=== PATIENT | male | born 1970 | race Caucasian/White ===

== ENCOUNTER 2020-06-20 04:12 | Inpatient (IN) | payer MEDICARE, MEDICAID ==
[2020-06-20 04:37] LABS: #Monocytes 0.9 10x3/uL (0.0-1.1); #Neutrophils 9.2 10x3/uL (1.5-8.4); %Basophils 0.3 % (0.0-2.0); %Eosinophils 0.3 % (0.0-6.0); %Lymphocytes 12.2 % (18.0-47.0); %Monocytes 7.5 % (0.0-10.0); %Neutrophils 79.4 % (40.0-75.0); Hemoglobin 14.3 g/dL (13.5-17.5); Mean Corpuscular HGB CONC 30.9 g/dL (32.0-36.0); Mean Corpuscular Hemoglobin 30.4 pg (27.0-33.0); Mean Corpuscular Volume 98.5 fl (81.2-95.1); Mean Platelet Volume 9.7 fl (7.4-10.4); Platelet Count 319 10x3/uL (150-450); RBC Distribution Width 12.3 % (11.5-14.5); White Blood Cell (WBC) Count 11.6 10x3/uL (3.5-10.5)
[2020-06-20 04:38] LABS: Actual Bicarbonate (HCO3v) 29 mEq/L (22-28); Base Excess -1.4 mEq/L (-2.0 to +3.0); Calcium, Ionized (venous) 1.12 mmol/L (1.16-1.32); Chloride (VBG) 99 mmol/L (98-106); Hemoglobin (Hb) 15.2 g/dL (13.1-17.2); Potassium (VBG) 4.54 mmol/L (3.70-5.30); Puncture Site Other Site; pH (venous) 7.19 (7.32-7.43)
[2020-06-20] MEDS ORDERED: Albuterol Sulfate 2.5 mg/0.5 ml Neb ONE (04:41)
[2020-06-20 04:50] LABS: ALT (SGPT) 49 U/L (8-55); AST (SGOT) 32 U/L (5-34); Albumin 4.2 g/dL (3.5-5.0); Alkaline Phosphatase 111 U/L (40-110); Anion Gap 10 mmol/L (10-20); BUN (Urea Nitrogen) 8 mg/dL (8.9-20.6); Bilirubin, Total 0.4 mg/dL (0.2-1.2); CK (CPK) 233 U/L (30-200); Calc. Creatinine Clearance 0 mL/min (70-130); Calcium 8.2 mg/dL (7.8-10.44); Carbon Dioxide 36 mmol/L (22-29); Chloride 97 mmol/L (98-107); Globulin 2.8 g/dL (2.4-3.5); Glucose 132 mg/dL (70-105); Potassium 4.8 mmol/L (3.5-5.1); Sodium 138 mmol/L (136-145)
[2020-06-20] MEDS ORDERED: Cefepime 2 GM VIAL ONE (05:04)
[2020-06-20 05:18] LABS: SARS-CoV-2 NAA Rapid Test Not Detected (NotDetected)
[2020-06-20] MEDS ORDERED: Milk Of Magnesia 30 ML UDCUP PO PRN (06:03)
[2020-06-20] MEDS ORDERED: Ondansetron PF 4 MG/2 ML Vial IVP PRN (06:03)
[2020-06-20] MEDS ORDERED: Ondansetron ODT 4 MG TAB PO PRN (06:03)
[2020-06-20] MEDS ORDERED: Senokot S 8.6-50 MG TAB PO PRN (06:03)
[2020-06-20 06:26] VITALS: BMI 24.5
[2020-06-20] MEDS: Sodium Chloride 0.9% 1,000 ML IV SCH ×2 (06:44→20:15)
[2020-06-20] MEDS: methylPREDNISolone Sod Succ 40 MG VIAL IVP SCH ×4 (06:45→23:46)
[2020-06-20] MEDS: Arformoterol 15 MCG/2 ML NEB NEB SCH ×2 (07:24→18:57)
[2020-06-20] MEDS: Budesonide 0.5 MG/2 ML NEB NEB SCH ×2 (07:30→18:58)
[2020-06-20] MEDS: Pantoprazole 40 MG VIAL IVP SCH (08:00)
[2020-06-20] MEDS: guaiFENesin ER 600 MG TAB PO SCH ×2 (08:00→20:13)
[2020-06-20] MEDS: Nicotine 21 MG PATCH TD SCH (08:00)
[2020-06-20] MEDS: Enoxaparin Sodium 40 MG/0.4 ML SYRINGE SC SCH (08:36)
[2020-06-20 09:52] LABS: Actual Bicarbonate (HCO3a) 35.2 mEq/L (22-28); Base Excess (BEa) 3.5 mEq/L (-2.0 to +3.0); CO2 Tension 94.2 mmHg (35.0-45.0); Calcium, Ionized (arterial) 1.16 mmol/L (1.12-1.30); Hemoglobin (Hb) 14.6 g/dL (14.0-18.0); Potassium - ABG Lab 4.8 mmol/L (3.70-5.30); Puncture Site LRA; pH, Arterial 7.19 (7.35-7.45)
[2020-06-20] MEDS ORDERED: Prevnar 13-Val Conj/PF 0.5 ML SYRINGE IM ONE (10:00)
[2020-06-20 13:05] LABS: Actual Bicarbonate (HCO3a) 32.6 mEq/L (22-28); Base Excess (BEa) 2.7 mEq/L (-2.0 to +3.0); Calcium, Ionized (arterial) 1.16 mmol/L (1.12-1.30); Carboxyhemoglobin (COHb) 0.8 gm% (0.0-3.0); Hemoglobin (Hb) 14.1 g/dL (14.0-18.0); Potassium - ABG Lab 4.6 mmol/L (3.70-5.30); Puncture Site LRA; pH, Arterial 7.24 (7.35-7.45)
[2020-06-20] MEDS: cefTRIAXone\\ROCEPHIN 2 GM in Sodium Chloride 0.9% 100 ML IVPB SCH (13:40)
[2020-06-20] MEDS: Azithromycin 500 MG in Sodium Chloride 0.9% 250 ML 250 ML IVPB SCH (20:13)
[2020-06-21 03:41] LABS: #Monocytes 0.5 10x3/uL (0.0-1.1); #Neutrophils 7.1 10x3/uL (1.5-8.4); %Basophils 0.1 % (0.0-2.0); %Lymphocytes 7.4 % (18.0-47.0); %Monocytes 5.8 % (0.0-10.0); %Neutrophils 86.5 % (40.0-75.0); Hemoglobin 12.7 g/dL (13.5-17.5); Mean Corpuscular HGB CONC 31.6 g/dL (32.0-36.0); Mean Corpuscular Hemoglobin 30.8 pg (27.0-33.0); Mean Corpuscular Volume 97.3 fl (81.2-95.1); Mean Platelet Volume 9.5 fl (7.4-10.4); Platelet Count 248 10x3/uL (150-450); RBC Distribution Width 12.4 % (11.5-14.5); Red Blood Cell (RBC) Count 4.13 10x6/uL (4.32-5.72); White Blood Cell (WBC) Count 8.3 10x3/uL (3.5-10.5)
[2020-06-21 03:46] LABS: Base Excess (BEa) 6.3 mEq/L (-2.0 to +3.0); CO2 Tension 90.2 mmHg (35.0-45.0); Calcium, Ionized (arterial) 1.17 mmol/L (1.12-1.30); Carboxyhemoglobin (COHb) 0.6 gm% (0.0-3.0); Hemoglobin (Hb) 13.3 g/dL (14.0-18.0); O2 Tension (PaO2), arterial 47.3 mmHg (80.0-100.0); Potassium - ABG Lab 4.5 mmol/L (3.70-5.30); Puncture Site RRA; pH, Arterial 7.23 (7.35-7.45)
[2020-06-21 03:54] LABS: Anion Gap 13 mmol/L (10-20); BUN (Urea Nitrogen) 9 mg/dL (8.9-20.6); Calc. Creatinine Clearance 133 mL/min (70-130); Calcium 8.6 mg/dL (7.8-10.44); Carbon Dioxide 35 mmol/L (22-29); Chloride 97 mmol/L (98-107); Glucose 134 mg/dL (70-105); Potassium 4.7 mmol/L (3.5-5.1); Sodium 140 mmol/L (136-145)
[2020-06-21] MEDS: methylPREDNISolone Sod Succ 40 MG VIAL IVP SCH ×4 (06:09→23:41)
[2020-06-21] MEDS: Arformoterol 15 MCG/2 ML NEB NEB SCH ×2 (07:11→18:46)
[2020-06-21] MEDS: Budesonide 0.5 MG/2 ML NEB NEB SCH ×2 (07:15→18:46)
[2020-06-21] MEDS: Sodium Chloride 0.9% 1,000 ML IV SCH ×2 (08:35→20:55)
[2020-06-21] MEDS: guaiFENesin ER 600 MG TAB PO SCH ×2 (08:36→20:31)
[2020-06-21] MEDS: Enoxaparin Sodium 40 MG/0.4 ML SYRINGE SC SCH (08:36)
[2020-06-21] MEDS: Nicotine 21 MG PATCH TD SCH (08:37)
[2020-06-21] MEDS: Pantoprazole 40 MG VIAL IVP SCH (08:38)
[2020-06-21 09:29] LABS: Actual Bicarbonate (HCO3a) 37.7 mEq/L (22-28); Base Excess (BEa) 8.9 mEq/L (-2.0 to +3.0); CO2 Tension 73.9 mmHg (35.0-45.0); Calcium, Ionized (arterial) 1.14 mmol/L (1.12-1.30); Carboxyhemoglobin (COHb) 0.3 gm% (0.0-3.0); Hemoglobin (Hb) 13.2 g/dL (14.0-18.0); O2 Tension (PaO2), arterial 92.7 mmHg (80.0-100.0); Potassium - ABG Lab 4.3 mmol/L (3.70-5.30); Puncture Site RRA; pH, Arterial 7.33 (7.35-7.45)
[2020-06-21 09:31] LABS: ALV-art Gradient 14.565 mmHg (0-20)
[2020-06-21] MEDS: cefTRIAXone\\ROCEPHIN 2 GM in Sodium Chloride 0.9% 100 ML IVPB SCH (12:24)
[2020-06-21] MEDS: Azithromycin 500 MG in Sodium Chloride 0.9% 250 ML 250 ML IVPB SCH (20:31)
[2020-06-22] MEDS: methylPREDNISolone Sod Succ 40 MG VIAL IVP SCH ×4 (05:30→21:53)
[2020-06-22] MEDS: Arformoterol 15 MCG/2 ML NEB NEB SCH ×2 (07:21→19:53)
[2020-06-22] MEDS: Budesonide 0.5 MG/2 ML NEB NEB SCH ×2 (07:24→19:53)
[2020-06-22] MEDS: Pantoprazole 40 MG VIAL IVP SCH (08:46)
[2020-06-22] MEDS: Enoxaparin Sodium 40 MG/0.4 ML SYRINGE SC SCH (08:46)
[2020-06-22] MEDS: guaiFENesin ER 600 MG TAB PO SCH ×2 (08:46→21:52)
[2020-06-22] MEDS: Nicotine 21 MG PATCH TD SCH (08:47)
[2020-06-22] MEDS: Sodium Chloride 0.9% 1,000 ML IV SCH (12:28)
[2020-06-22] MEDS: cefTRIAXone\\ROCEPHIN 2 GM in Sodium Chloride 0.9% 100 ML IVPB SCH (12:44)
[2020-06-22] MEDS: Azithromycin 500 MG in Sodium Chloride 0.9% 250 ML 250 ML IVPB SCH (21:52)
[2020-06-23] MEDS: Arformoterol 15 MCG/2 ML NEB NEB SCH ×2 (07:00→19:14)
[2020-06-23] MEDS: Budesonide 0.5 MG/2 ML NEB NEB SCH ×2 (07:00→19:14)
[2020-06-23] MEDS: methylPREDNISolone Sod Succ 40 MG VIAL IVP SCH ×4 (07:02→23:25)
[2020-06-23] MEDS: Nicotine 21 MG PATCH TD SCH (09:30)
[2020-06-23] MEDS: guaiFENesin ER 600 MG TAB PO SCH ×2 (09:30→23:23)
[2020-06-23] MEDS: Enoxaparin Sodium 40 MG/0.4 ML SYRINGE SC SCH (09:30)
[2020-06-23] MEDS: Pantoprazole 40 MG VIAL IVP SCH (09:30)
[2020-06-23] MEDS: Sodium Chloride 0.9% 1,000 ML IV SCH (09:34)
[2020-06-23] MEDS: cefTRIAXone\\ROCEPHIN 2 GM in Sodium Chloride 0.9% 100 ML IVPB SCH (12:59)
[2020-06-23] MEDS: Azithromycin 500 MG in Sodium Chloride 0.9% 250 ML 250 ML IVPB SCH (23:23)
[2020-06-24] MEDS: methylPREDNISolone Sod Succ 40 MG VIAL IVP SCH (06:41)
[2020-06-24] MEDS: Arformoterol 15 MCG/2 ML NEB NEB SCH (07:30)
[2020-06-24] MEDS: Budesonide 0.5 MG/2 ML NEB NEB SCH (07:30)
[2020-06-24 07:56] VITALS: BP 141/88; TEMP 97.1
[2020-06-24] MEDS: Pantoprazole 40 MG VIAL IVP SCH (09:21)
[2020-06-24] MEDS: Nicotine 21 MG PATCH TD SCH (09:21)
[2020-06-24] MEDS: guaiFENesin ER 600 MG TAB PO SCH (09:21)
[2020-06-24] MEDS: Enoxaparin Sodium 40 MG/0.4 ML SYRINGE SC SCH (09:21)
== END 2020-06-24 12:16 | disposition home or self-care (01) | DRG 189 ==
LOC: CSHERS 04:12 → CSHIMCU 06:16 → CSHTELE 06-22 19:09
PROVIDERS: ADMIT Family Medicine; ATTEND Family Medicine
PROC: 5A09457 Assistance with Respiratory Ventilation, 24-96 Consecutive Hours, Continuous Positive Airway Pressure (ICD-10-PCS; principal; 2020-06-20)
DX: J96.21 Acute and chronic respiratory failure with hypoxia (principal); J44.1 Chronic obstructive pulmonary disease with (acute) exacerbation; E87.2 Acidosis; Z20.822 Contact with and (suspected) exposure to COVID-19; J96.22 Acute and chronic respiratory failure with hypercapnia; F17.210 Nicotine dependence, cigarettes, uncomplicated; Z88.0 Allergy status to penicillin; Z90.49 Acquired absence of other specified parts of digestive tract; Z80.8 Family history of malignant neoplasm of other organs or systems; Z98.890 Other specified postprocedural states; Z99.81 Dependence on supplemental oxygen; Z71.6 Tobacco abuse counseling
CPT/HCPCS: 36600; 71045; 80048; 80053; 82550; 82805; 83605; 83735; 84484; 85025; 87040; 93005; 94640; 94660; 94760; 96374; 96375; C9113; J0456; J0692; J0696; J1650; J1956; J2920; J3490; J7050; J7611; J7620; J7626; U0002

== ENCOUNTER 2020-11-11 07:38 | Inpatient (IN) | payer MEDICARE, MEDICAID ==
[2020-11-11] MEDS ORDERED: Albuterol Sulfate 2.5 mg/3 ml Neb ONE (07:53)
[2020-11-11 08:08] LABS: #Monocytes 0.9 10x3/uL (0.0-1.1); #Neutrophils 10.5 10x3/uL (1.5-8.4); %Basophils 0.2 % (0.0-2.0); %Eosinophils 0.2 % (0.0-6.0); %Lymphocytes 13.8 % (18.0-47.0); %Monocytes 6.5 % (0.0-10.0); %Neutrophils 78.7 % (40.0-75.0); Hemoglobin 15.6 g/dL (13.5-17.5); Mean Corpuscular HGB CONC 31.4 g/dL (32.0-36.0); Mean Corpuscular Hemoglobin 30.1 pg (27.0-33.0); Mean Corpuscular Volume 95.9 fl (81.2-95.1); Platelet Count 364 10x3/uL (150-450); RBC Distribution Width 12.1 % (11.5-14.5); Red Blood Cell (RBC) Count 5.18 10x6/uL (4.32-5.72); White Blood Cell (WBC) Count 13.4 10x3/uL (3.5-10.5)
[2020-11-11 08:19] LABS: ALT (SGPT) 21 U/L (8-55); AST (SGOT) 24 U/L (5-34); Albumin 4.3 g/dL (3.5-5.0); Alkaline Phosphatase 111 U/L (40-110); Anion Gap 13 mmol/L (10-20); BUN (Urea Nitrogen) 10 mg/dL (8.4-25.7); Bilirubin, Total 0.6 mg/dL (0.2-1.2); Calc. Creatinine Clearance 0 mL/min (70-130); Calcium 9.9 mg/dL (7.8-10.44); Carbon Dioxide 32 mmol/L (22-29); Chloride 97 mmol/L (98-107); Globulin 4.4 g/dL (2.4-3.5); Glucose 128 mg/dL (70-105); Protein, Total 8.7 g/dL (6.0-8.3); Sodium 137 mmol/L (136-145)
[2020-11-11 08:33] LABS: Actual Bicarbonate (HCO3a) 29.2 mEq/L (22-28); Base Excess (BEa) 0.2 mEq/L (-2.0 to +3.0); CO2 Tension 65.4 mmHg (35.0-45.0); Carboxyhemoglobin (COHb) 2.1 gm% (0.0-3.0); Hemoglobin (Hb) 16.6 g/dL (14.0-18.0); O2 Tension (PaO2), arterial 219.2 mmHg (80.0-100.0); Potassium - ABG Lab 5.2 mmol/L (3.70-5.30); Puncture Site LBA; pH, Arterial 7.27 (7.35-7.45)
[2020-11-11 08:55] LABS: SARS-CoV-2 NAA Rapid Test Not Detected (NotDetected)
[2020-11-11] MEDS ORDERED: Albuterol Sulfate 2.5 mg/3 ml Neb NEB PRN (09:36)
[2020-11-11] MEDS ORDERED: Bisacodyl 5 MG TAB PO PRN (09:38)
[2020-11-11] MEDS ORDERED: HYDROcodone/Acetaminophen 5/325 mg Tablet PO PRN (09:38)
[2020-11-11] MEDS ORDERED: Ondansetron ODT 4 MG TAB PO PRN (09:38)
[2020-11-11] MEDS ORDERED: Ondansetron PF 4 MG/2 ML Vial IVP PRN (09:38)
[2020-11-11] MEDS ORDERED: Acetaminophen 325 MG TAB PO PRN (09:38)
[2020-11-11 10:53] VITALS: BMI 24.3
[2020-11-11 10:58] LABS: Troponin I Less than 0.010 ng/mL (< 0.028)
[2020-11-11] MEDS: methylPREDNISolone Sod Succ 40 MG VIAL IVP SCH ×3 (11:31→23:04)
[2020-11-11] MEDS: Nicotine 14 MG PATCH TD SCH (11:31)
[2020-11-11] MEDS ORDERED: Prevnar 13-Val Conj/PF 0.5 ML SYRINGE IM ONE (11:45)
[2020-11-11 14:02] LABS: Troponin I Less than 0.010 ng/mL (< 0.028)
[2020-11-11] MEDS: Famotidine 20 MG TAB PO SCH (22:04)
[2020-11-12 03:30] LABS: #Monocytes 0.5 10x3/uL (0.0-1.1); #Neutrophils 11.7 10x3/uL (1.5-8.4); %Basophils 0.1 % (0.0-2.0); %Lymphocytes 5.3 % (18.0-47.0); %Monocytes 4.1 % (0.0-10.0); %Neutrophils 90.2 % (40.0-75.0); Hemoglobin 13.5 g/dL (13.5-17.5); Mean Corpuscular HGB CONC 31.8 g/dL (32.0-36.0); Mean Corpuscular Hemoglobin 29.9 pg (27.0-33.0); Mean Platelet Volume 8.9 fl (7.4-10.4); Platelet Count 304 10x3/uL (150-450); RBC Distribution Width 12.1 % (11.5-14.5); Red Blood Cell (RBC) Count 4.51 10x6/uL (4.32-5.72)
[2020-11-12 03:43] LABS: Anion Gap 13 mmol/L (10-20); BUN (Urea Nitrogen) 17 mg/dL (8.4-25.7); Calc. Creatinine Clearance 119 mL/min (70-130); Calcium 9.7 mg/dL (7.8-10.44); Carbon Dioxide 31 mmol/L (22-29); Chloride 92 mmol/L (98-107); Glucose 155 mg/dL (70-105); Potassium 4.4 mmol/L (3.5-5.1); Sodium 132 mmol/L (136-145)
[2020-11-12] MEDS: methylPREDNISolone Sod Succ 40 MG VIAL IVP SCH ×3 (05:32→21:13)
[2020-11-12] MEDS: Famotidine 20 MG TAB PO SCH ×2 (07:54→21:12)
[2020-11-12] MEDS: Enoxaparin Sodium 40 MG/0.4 ML SYRINGE SC SCH (07:54)
[2020-11-12] MEDS: Nicotine 14 MG PATCH TD SCH (07:54)
[2020-11-12] MEDS ORDERED: Doxycycline 100 MG CAP PO SCH (10:00)
[2020-11-12] MEDS: Arformoterol 15 MCG/2 ML NEB NEB SCH (19:15)
[2020-11-12] MEDS: Atorvastatin Calcium 10 MG TAB PO SCH (21:13)
[2020-11-12] MEDS: Doxycycline 100 MG CAP PO SCH (21:34)
[2020-11-13] MEDS: Arformoterol 15 MCG/2 ML NEB NEB SCH ×2 (08:00→20:10)
[2020-11-13 08:16] LABS: #Neutrophils 16.7 10x3/uL (1.5-8.4); %Basophils 0.1 % (0.0-2.0); %Lymphocytes 4.7 % (18.0-47.0); %Monocytes 5.4 % (0.0-10.0); %Neutrophils 89.1 % (40.0-75.0); Mean Corpuscular HGB CONC 30.9 g/dL (32.0-36.0); Mean Corpuscular Hemoglobin 29.9 pg (27.0-33.0); Mean Corpuscular Volume 96.8 fl (81.2-95.1); Mean Platelet Volume 9.4 fl (7.4-10.4); Platelet Count 351 10x3/uL (150-450); RBC Distribution Width 12.1 % (11.5-14.5); Red Blood Cell (RBC) Count 4.35 10x6/uL (4.32-5.72); White Blood Cell (WBC) Count 18.7 10x3/uL (3.5-10.5)
[2020-11-13 08:32] LABS: Anion Gap 11 mmol/L (10-20); BUN (Urea Nitrogen) 15 mg/dL (8.4-25.7); Calc. Creatinine Clearance 138 mL/min (70-130); Calcium 9.6 mg/dL (7.8-10.44); Carbon Dioxide 33 mmol/L (22-29); Chloride 99 mmol/L (98-107); Glucose 134 mg/dL (70-105); Potassium 4.4 mmol/L (3.5-5.1); Sodium 139 mmol/L (136-145)
[2020-11-13] MEDS: Lisinopril 5 MG TAB PO SCH (09:03)
[2020-11-13] MEDS: Enoxaparin Sodium 40 MG/0.4 ML SYRINGE SC SCH (09:03)
[2020-11-13] MEDS: methylPREDNISolone Sod Succ 40 MG VIAL IVP SCH ×3 (09:04→21:29)
[2020-11-13] MEDS: Famotidine 20 MG TAB PO SCH ×2 (09:04→21:27)
[2020-11-13] MEDS: Doxycycline 100 MG CAP PO SCH ×2 (09:10→21:28)
[2020-11-13] MEDS: Nicotine 14 MG PATCH TD SCH (13:35)
[2020-11-13] MEDS: Atorvastatin Calcium 10 MG TAB PO SCH (21:27)
[2020-11-14] MEDS: Famotidine 20 MG TAB PO SCH ×2 (08:32→21:31)
[2020-11-14] MEDS: Doxycycline 100 MG CAP PO SCH ×2 (08:32→21:32)
[2020-11-14] MEDS: Lisinopril 5 MG TAB PO SCH (08:32)
[2020-11-14] MEDS: Enoxaparin Sodium 40 MG/0.4 ML SYRINGE SC SCH (08:32)
[2020-11-14] MEDS: methylPREDNISolone Sod Succ 40 MG VIAL IVP SCH ×2 (08:32→21:31)
[2020-11-14] MEDS: Arformoterol 15 MCG/2 ML NEB NEB SCH ×2 (08:40→21:55)
[2020-11-14 08:48] LABS: #Monocytes 1.2 10x3/uL (0.0-1.1); #Neutrophils 12.5 10x3/uL (1.5-8.4); %Basophils 0.2 % (0.0-2.0); %Eosinophils 0.1 % (0.0-6.0); %Lymphocytes 5.8 % (18.0-47.0); %Monocytes 8.1 % (0.0-10.0); %Neutrophils 84.7 % (40.0-75.0); Mean Corpuscular HGB CONC 31.5 g/dL (32.0-36.0); Mean Corpuscular Hemoglobin 29.9 pg (27.0-33.0); Mean Corpuscular Volume 94.7 fl (81.2-95.1); Mean Platelet Volume 9.8 fl (7.4-10.4); Platelet Count 341 10x3/uL (150-450); RBC Distribution Width 12.3 % (11.5-14.5); Red Blood Cell (RBC) Count 4.69 10x6/uL (4.32-5.72); White Blood Cell (WBC) Count 14.7 10x3/uL (3.5-10.5)
[2020-11-14 10:14] LABS: Anion Gap 13 mmol/L (10-20); BUN (Urea Nitrogen) 16 mg/dL (8.4-25.7); Calc. Creatinine Clearance 132 mL/min (70-130); Calcium 9.8 mg/dL (7.8-10.44); Carbon Dioxide 32 mmol/L (22-29); Chloride 99 mmol/L (98-107); Glucose 96 mg/dL (70-105); Potassium 4.5 mmol/L (3.5-5.1); Sodium 139 mmol/L (136-145)
[2020-11-14] MEDS: Nicotine 14 MG PATCH TD SCH (12:26)
[2020-11-14] MEDS: Atorvastatin Calcium 10 MG TAB PO SCH (21:31)
[2020-11-15 03:14] LABS: #Monocytes 0.6 10x3/uL (0.0-1.1); #Neutrophils 10.1 10x3/uL (1.5-8.4); %Basophils 0.3 % (0.0-2.0); %Lymphocytes 7.6 % (18.0-47.0); %Monocytes 5.3 % (0.0-10.0); %Neutrophils 84.5 % (40.0-75.0); Hemoglobin 13.5 g/dL (13.5-17.5); Mean Corpuscular HGB CONC 31.8 g/dL (32.0-36.0); Mean Corpuscular Hemoglobin 30.1 pg (27.0-33.0); Mean Corpuscular Volume 94.9 fl (81.2-95.1); Mean Platelet Volume 9.3 fl (7.4-10.4); Platelet Count 347 10x3/uL (150-450); RBC Distribution Width 12.4 % (11.5-14.5); Red Blood Cell (RBC) Count 4.48 10x6/uL (4.32-5.72); White Blood Cell (WBC) Count 11.9 10x3/uL (3.5-10.5)
[2020-11-15 03:33] LABS: Anion Gap 13 mmol/L (10-20); BUN (Urea Nitrogen) 17 mg/dL (8.4-25.7); Calc. Creatinine Clearance 106 mL/min (70-130); Calcium 9.4 mg/dL (7.8-10.44); Carbon Dioxide 30 mmol/L (22-29); Chloride 99 mmol/L (98-107); Glucose 216 mg/dL (70-105); Potassium 4.3 mmol/L (3.5-5.1); Sodium 138 mmol/L (136-145)
[2020-11-15] MEDS: Arformoterol 15 MCG/2 ML NEB NEB SCH (07:25)
[2020-11-15 08:14] VITALS: TEMP 98.1
[2020-11-15] MEDS: Enoxaparin Sodium 40 MG/0.4 ML SYRINGE SC SCH (09:07)
[2020-11-15] MEDS: Lisinopril 5 MG TAB PO SCH (09:07)
[2020-11-15] MEDS: Famotidine 20 MG TAB PO SCH (09:07)
[2020-11-15] MEDS: methylPREDNISolone Sod Succ 40 MG VIAL IVP SCH (09:07)
[2020-11-15 12:17] VITALS: BP 104/52
[2020-11-15] MEDS: Nicotine 14 MG PATCH TD SCH (13:14)
== END 2020-11-15 14:34 | disposition home or self-care (01) | DRG 189 ==
LOC: CSHERS 07:38 → CSHIMCU 10:08 → UNDOADMIN 10:08 → CSHIMCU 11-12 09:26 → CSHTELE 11-13 16:37 → CSHIMCU 11-13 16:37
PROVIDERS: ADMIT Hospitalist; ATTEND Internal Medicine
PROC: 5A09357 Assistance with Respiratory Ventilation, Less than 24 Consecutive Hours, Continuous Positive Airway Pressure (ICD-10-PCS; principal; 2020-11-12)
DX: J96.22 Acute and chronic respiratory failure with hypercapnia (principal); J44.1 Chronic obstructive pulmonary disease with (acute) exacerbation; E87.2 Acidosis; Z20.822 Contact with and (suspected) exposure to COVID-19; I10 Essential (primary) hypertension; F17.210 Nicotine dependence, cigarettes, uncomplicated; E78.5 Hyperlipidemia, unspecified; Z99.81 Dependence on supplemental oxygen; Z88.0 Allergy status to penicillin; Z79.52 Long term (current) use of systemic steroids; Z79.899 Other long term (current) drug therapy
CPT/HCPCS: 36415; 36600; 71045; 80048; 80053; 82805; 84484; 85025; 87070; 87077; 87186; 87205; 93005; 94644; 94660; 94760; J1650; J2920; J7611; J7620; U0002